=== PATIENT | male | born 1975 | race Caucasian/White ===

== ENCOUNTER 2023-07-29 13:21 | Observation (INO) ==
--- NOTE | 2023-07-29 14:52 | ED Triage Note ---
Date of Service July 29, 2023 History of Present Illness This patient was briefly evaluated while in triage. An abbreviated physical exam was performed. This patient is a 48-year-old Male who presents to the ED for evaluation of abdominal pain. Center and to the right side of the lower abdomen. Started around 8:30 am today. Associated nausea. He describes it as: "Stomach cramping" and "bloating". Physical Exam GENERAL: 48 year old male. In no acute distress. SKIN: No lesions or rashes. HEART: Regular rate and rhythm. LUNGS: Clear to auscultation. ABDOMEN: Bowel sounds normoactive. No guarding or rigidity. No tenderness of palpation. NEURO: Alert and oriented. No deficits. MUSCULOSKELETAL: No deformities to inspection of the extremities. PSYCH: Patient is pleasant and answers all questions appropriately. Initial orders for labs and / or imaging were placed and patient was placed in the waiting area until a bed is available. Please see further documentation for the full ED course.
[2023-07-29 18:12] LABS: Alanine Aminotransferase 36 U/L (7-52); Albumin Globulin Ratio 1.5 (0.9-2); Albumin Level 4.9 gm/dl (3.4-5.0); Alkaline Phosphatase 91 U/L (34-104); BUN Creatinine Ratio 22.7 (10-20); Bilirubin,Total 1.1 mg/dl (0.2-1.0); Blood Urea Nitrogen 20 mg/dl (6-23); Calcium 10.1 mg/dl (8.6-10.3); Carbon Dioxide 26 mmol/L (21-32); Chloride 101 mmol/L (98-107); Est GFR (African American) 119.4 ml/min; Globulin 3.2 gm/dl (2.5-4.0); Glucose 107 mg/dl (70-99(Fasting)); Lipase 17 U/L (11-82); Total Protein 8.1 gm/dl (6.0-8.3)
[2023-07-29] MEDS ORDERED: OPTIRAY 320 100ml IV ONE (18:58)
[2023-07-29 19:22] LABS: Basophils # (auto) 0.06 K/uL (0.00-0.20); Basophils % (auto) 0.4 %; Eosinophils # (auto) 0.34 K/uL (0.00-0.50); Eosinophils % (auto) 2.5 %; Hematocrit (blood only) 46.3 % (42.0-52.0); Hemoglobin 16.1 g/dl (14.0-18.0); Immature Granulocytes # (auto) 0.06 K/uL (0.01-0.20); Immature Granulocytes % (auto) 0.4 %; Lymphocytes # (auto) 1.27 K/uL (1.20-3.40); Lymphocytes % (auto) 9.3 %; Mean Corpuscular Hgb Conc 34.8 g/dL (32.0-36.0); Mean Platelet Volume 10.1 fL (9.4-12.4); Monocytes % (auto) 5.1 %; Neutrophils % (auto) 82.3 %; Platelet Count 219 K/uL (130-400); RDW Coefficient of Variation 12.5 % (11.5-14.5); RDW Standard Deviation 40.9 fL (36.4-46.3); White Blood Count 13.63 K/ul (4.8-10.8)
--- NOTE | 2023-07-29 19:29 | Emergency Department Note ---
Impression & Plan Acute cholecystitis ED Provider Note NAME: BRENDEN RIVERA AGE: 48 SEX: M : 1975 ARRIVES VIA: Walk-In INFORMANT: Patient, ED PROVIDER(S): Abdoul Ocasio MD Name: BRENDEN RIVERA Age: 48 Arrives Via: Walk-In Informant: Patient CC: Abdominal pain HPI: 48M arrives for evaluation of abdominal pain. Patient notes that for the past few weeks he has had persistent episodes of abdominal pain in the mornings. 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 His last approximately 1 to 2 hours and then self resolved. Describes it as a crampy sensation starting in his mid epigastrium. Also radiates into his right lower quadrant. He notes constipation as well as nausea. He notes that occasionally this episode will also occur after waking up in the afternoon prior to going to work. He notes it is not related to food intake. Never happened before. No history of Crohn's or ulcerative colitis. No gallbladder abnormalities in the past. ROS: See above HPI for pertinent positives & negatives. A total of 10 systems reviewed and were otherwise negative. Past Medical History:See Below Past Surgical History:See Below Family History:See Below Social History:See Below Home Medications:See Below Allergies:See Below Vitals:See Below Physical Exam: GENERAL: Patient is well appearing and in no acute distress. EYES: No scleral icterus, unremarkable pupils. ENT: Mucous membranes moist, no nasal congestion. NECK: No masses appreciated, nomeningismus, trachea is midline. RESPIRATORY: No dyspnea. Clear to auscultation and equal bilaterally. No wheeze, no rhonchi. CARDIOVASCULAR: Regular rate and rhythm.No murmurs, rubs, gallops appreciated. GASTROINTESTINAL: Abdomen soft, mildly tender, mostly in the right upper quadrant no peritonitis.Bowel sounds positive.No masses appreciated. BACK: No midline tenderness, no CVA tenderness EXTREMITIES: Normal motion all extremities, no cyanosis, no edema. NEUROLOGIC: Alert and oriented, no acute motor or sensory deficits, no focal weakness, cranial nerves grossly intact. SKIN: No rash, no jaundice, no diaphoresis. ED Course: Prior Medical Record, Triage/Nursing Notes, Medications, Allergies reviewed by Me Vital Signs: reviewed and remarkable for no significant abnormalities Labs:Reviewed and remarkable for no significant abnormalities Interventions: IV antibiotics Imaging:CT abdomen/pelvis as below EKG:EKG reviewed by me showing normal sinus rhythm, rate 70, IL 186, QRS 96, QTc 423, no ST segment elevations consistent with STEMI. Consults:General surgery Disposition:Admission for surgical surgery surgical service admission Differentials:SBO, pancreatitis, appendicitis, cholecystitis amongst other pathologies. Medical Decision Making: This is a 48-year-old male presenting abdominal pain. With episodic in nature, consider GERD, cholecystitis, ulcerative colitis, Crohn's. Also consider SBO. Consider ACS however less likely. blood work shows leukocytosis 13.6 otherwise no significant abnormalities. Ceftriaxone for empiric coverage. Will discuss with on-call surgeon for further recommendations. At this time we will start Flagyl and patient CT scan is positive for acute cholecystitis. Discussed with Dr. Lee, general surgeon who accepts patient to her service. Impression: Acute cholecystitis Critical Care Time: None Past Med/Surg History Social History Smoking Status: Current every day smoker Tobacco Type: E-cigarettes / Vaping Hx Alcohol Use: No Hx Substance Use: No Preferred Language: Slovak Communication Ability: Effective Gravity Prospecting Operator Required: No Beliefs That Will Affect Care: None Current Living Situation: Alone Other Information That Helps Us Care for You: No Feels Safe at Home: Yes Safety Concerns: Feels Safe At This Time Assistive Devices: None Allergies Allergies Allergy/AdvReac Type Severity Reaction Status Date / Time No Known Allergies Allergy Unknown Verified 07/29/23 19:54 Home Meds Home Medications Medication Instructions Recorded Confirmed No Known Home Medications 07/29/23 07/29/23 Results & Data (ED) Vital Signs Vital Signs - 24 hr 07/29/23 14:51 07/29/23 19:57 Temperature 36.2 C L Temperature Source Temporal Artery Scan Pulse Rate 83 Pulse Rate [Apical] 85 Pulse Rhythm Regular Pulse Strength Normal Respiratory Rate 20 18 Respiratory Effort / Characteristics Non-Labored Spontaneous Respiratory Depth Normal Respiratory Pattern Regular Blood Pressure 154/105 H Blood Pressure [Right Arm] 146/95 H Blood Pressure Mean 121 Blood Pressure Mean [Right Arm] 112 Blood Pressure Position Sitting Pulse Oximetry 99 96 Oxygen Delivery Method Room Air Room Air Sepsis Recent Fever Within 48 Hours No Sepsis New/Unexplained Change in Mental Status No Sepsis Action Taken by Nursing No Action Required Laboratory Data 07/29/23 18:50 07/29/23 17:26 Lab Results 07/29/23 07/29/23 07/29/23 Range/Units 17:26 17:26 18:50 WBC Cancelled 13.63 H RBC Cancelled 5.20 Hgb Cancelled 16.1 Hct Cancelled 46.3 MCV Cancelled 89.0 MCH Cancelled 31.0 MCHC Cancelled 34.8 RDW Std Deviation Cancelled 40.9 RDW Coeff of Destiney Cancelled 12.5 Plt Count Cancelled 219 MPV Cancelled 10.1 Immature Gran % (Auto) Cancelled 0.4 Neut % (Auto) Cancelled 82.3 Lymph % (Auto) Cancelled 9.3 Hoke % (Auto) Cancelled 5.1 Eos % (Auto) Cancelled 2.5 Baso % (Auto) Cancelled 0.4 Neut # (Auto) Cancelled 11.20 H Lymph # (Auto) Cancelled 1.27 Hoke # (Auto) Cancelled 0.70 H Eos # (Auto) Cancelled 0.34 Baso # (Auto) Cancelled 0.06 Immature Gran # (Auto) Cancelled 0.06 Absolute Nucleated RBC Cancelled Nucleated RBC % (auto) Cancelled Neutrophils % (Manual) Cancelled Band Neutrophils % Cancelled Lymphocytes % (Manual) Cancelled Prolymphocyte % Cancelled Reactive Lymphs % (Man) Cancelled Monocytes % (Manual) Cancelled Eosinophils % (Manual) Cancelled Basophils % (Manual) Cancelled Metamyelocytes % (Man) Cancelled Myelocytes % (Man) Cancelled Promyelocytes % (Man) Cancelled Blast Cells % (Manual) Cancelled Plasma Cell % (Manual) Cancelled Other Cells % Cancelled Nucleated RBC % Cancelled Neutrophils # (Manual) Cancelled Band Neutrophils # Cancelled Total Absolute Neuts Cancelled Lymphocytes # (Manual) Cancelled Prolymphocyte # Cancelled Reactive Lymphs # Cancelled Total Abs Lymphocytes Cancelled Monocytes # (Manual) Cancelled Eosinophils # (Manual) Cancelled Basophils # (Manual) Cancelled Metamyelocytes # (Man) Cancelled Myelocytes # (Manual) Cancelled Promyelocytes # (Man) Cancelled Blast Cells # (Man) Cancelled Plasma Cell # (Manual) Cancelled Other Cells # Cancelled Nucleated RBCs # (Man) Cancelled Hypersegmented Neuts Cancelled Hyposegmented Neuts Cancelled Hypogranular Neuts Cancelled Large Granular Lymphs Cancelled # Lrg Granular Lymphs Cancelled Hairy Cells Cancelled Smudge Cells Cancelled Toxic Granulation Cancelled Toxic Vacuolation Cancelled Dohle Bodies Cancelled Gilson Rods Cancelled Platelet Estimate Cancelled Hypogranular Platelets Cancelled Giant Platelets Cancelled Platelet Satelliting Cancelled RBC Morphology Cancelled Polychromasia Cancelled Hypochromasia Cancelled Poikilocytosis Cancelled Basophilic Stippling Cancelled Anisocytosis Cancelled Microcytosis Cancelled Macrocytosis Cancelled Spherocytes Cancelled Pappenheimer Bodies Cancelled Sickle Cells Cancelled Target Cells Cancelled Tear Drop Cells Cancelled Ovalocytes Cancelled Stomatocytes Cancelled Carter-[place] Bodies Cancelled Echinocytes Cancelled Acanthocytes (Spur) Cancelled Rouleaux Cancelled RBC Agglutinates Cancelled Schistocytes Cancelled Sezary Cell Cancelled Sodium TNP Potassium TNP Chloride 101 (98-107) mmol/L Carbon Dioxide 26 (21-32) mmol/L Anion Gap TNP BUN 20 (6-23) mg/dl Creatinine 0.88 (0.6-1.4) mg/dl Est Cr Clr Drug Dosing 102.0 ml/min Est GFR ( Amer) 119.4 ml/min Est GFR (Non-Af Amer) 103.0 ml/min BUN/Creatinine Ratio 22.7 H (10-20) Glucose 107 H (70-99(Fasting)) mg/dl Calcium 10.1 (8.6-10.3) mg/dl Total Bilirubin 1.1 H (0.2-1.0) mg/dl AST TNP ALT 36 (7-52) U/L Alkaline Phosphatase 91 (34-104) U/L Troponin I High Sens (0-20) pg/ml Total Protein 8.1 (6.0-8.3) gm/dl Albumin 4.9 (3.4-5.0) gm/dl Globulin 3.2 (2.5-4.0) gm/dl Albumin/Globulin Ratio 1.5 (0.9-2) Lipase 17 (11-82) U/L Blood Parasites ID Cancelled 07/29/23 Range/Units 18:50 WBC RBC Hgb Hct MCV MCH MCHC RDW Std Deviation RDW Coeff of Destiney Plt Count MPV Immature Gran % (Auto) Neut % (Auto) Lymph % (Auto) Hoke % (Auto) Eos % (Auto) Baso % (Auto) Neut # (Auto) Lymph # (Auto) Hoke # (Auto) Eos # (Auto) Baso # (Auto) Immature Gran # (Auto) Absolute Nucleated RBC Nucleated RBC % (auto) Neutrophils % (Manual) Band Neutrophils % Lymphocytes % (Manual) Prolymphocyte % Reactive Lymphs % (Man) Monocytes % (Manual) Eosinophils % (Manual) Basophils % (Manual) Metamyelocytes % (Man) Myelocytes % (Man) Promyelocytes % (Man) Blast Cells % (Manual) Plasma Cell % (Manual) Other Cells % Nucleated RBC % Neutrophils # (Manual) Band Neutrophils # Total Absolute Neuts Lymphocytes # (Manual) Prolymphocyte # Reactive Lymphs # Total Abs Lymphocytes Monocytes # (Manual) Eosinophils # (Manual) Basophils # (Manual) Metamyelocytes # (Man) Myelocytes # (Manual) Promyelocytes # (Man) Blast Cells # (Man) Plasma Cell # (Manual) Other Cells # Nucleated RBCs # (Man) Hypersegmented Neuts Hyposegmented Neuts Hypogranular Neuts Large Granular Lymphs # Lrg Granular Lymphs Hairy Cells Smudge Cells Toxic Granulation Toxic Vacuolation Dohle Bodies Gilson Rods Platelet Estimate Hypogranular Platelets Giant Platelets Platelet Satelliting RBC Morphology Polychromasia Hypochromasia Poikilocytosis Basophilic Stippling Anisocytosis Microcytosis Macrocytosis Spherocytes Pappenheimer Bodies Sickle Cells Target Cells Tear Drop Cells Ovalocytes Stomatocytes Carter-[place] Bodies Echinocytes Acanthocytes (Spur) Rouleaux RBC Agglutinates Schistocytes Sezary Cell Sodium 137 Potassium 3.7 Chloride (98-107) mmol/L Carbon Dioxide (21-32) mmol/L Anion Gap BUN (6-23) mg/dl Creatinine (0.6-1.4) mg/dl Est Cr Clr Drug Dosing ml/min Est GFR ( Amer) ml/min Est GFR (Non-Af Amer) ml/min BUN/Creatinine Ratio (10-20) Glucose (70-99(Fasting)) mg/dl Calcium (8.6-10.3) mg/dl Total Bilirubin (0.2-1.0) mg/dl AST 23 ALT (7-52) U/L Alkaline Phosphatase (34-104) U/L Troponin I High Sens 6.4 (0-20) pg/ml Total Protein (6.0-8.3) gm/dl Albumin (3.4-5.0) gm/dl Globulin (2.5-4.0) gm/dl Albumin/Globulin Ratio (0.9-2) Lipase (11-82) U/L Blood Parasites ID Administered Medications Metronidazole (Flagyl) 500 mg in 100 mls @ 100 mls/hr IV Q8H DAI; Protocol Stop: 07/31/23 20:14 Last Infusion: 07/29/23 22:01 Dose: 0 mls/hr Documented By: Admin: 07/29/23 20:50 Dose: 100 mls/hr Documented By: SHAILA Lactated Ringer's (Lr) 1,000 mls @ 100 mls/hr IV .Q10H DAI Stop: 08/28/23 21:32 Last Admin: 07/29/23 22:05 Dose: 100 mls/hr Documented By: ADDISON Discontinued Medications Ceftriaxone Sodium (Rocephin) 2,000 mg in 70 mls @ 140 mls/hr IV NOW STA Stop: 07/29/23 20:36 Last Infusion: 07/29/23 21:20 Dose: 0 mls/hr Documented By: Admin: 07/29/23 20:50 Dose: 140 mls/hr Documented By: SHAILA Ioversol (Optiray 320 100ml) 92 ml IV ONCE ONE Stop: 07/29/23 18:59 Last Admin: 07/29/23 18:58 Dose: 92 ml Documented By: SEAN Imaging Data Radiologist's Impression: Abdomen/Pelvis CT 07/29/23 14:52 Exam(s): CT ABDOMEN + PELVIS With Contrast IV Amt: 92 ml optiray 350 EXAM: CT Abdomen and Pelvis With Intravenous Contrast CLINICAL HISTORY: Reason for exam: Mid and r sided abd pain. TECHNIQUE: Axial computed tomography images of the abdomen and pelvis with intravenous contrast. CTDI is 21.95 mGy and DLP is 1093.39 mGy-cm. Automated exposure control was utilized for the study. A dose lowering technique was utilized adhering to the principles of ALARA. CONTRAST: Patient received 92 ml optiray 350 of IV contrast COMPARISON: No relevant prior studies available. FINDINGS: Lung bases: Unremarkable. No mass. No consolidation. ABDOMEN: Liver: Unremarkable. No mass. Gallbladder and bile ducts: Wall thickening of the gallbladder measuring up to 5 mm with obstructing stone in the gallbladder neck, consistent with acute cholecystitis. Surgical evaluation recommended. No ductal dilation. Pancreas: Unremarkable. No mass. No ductal dilation. Spleen: Unremarkable. No splenomegaly. Adrenals: Unremarkable. No mass. Kidneys and ureters: Unremarkable. No solid mass. No hydronephrosis. Stomach and bowel: Diverticulosis, without acute diverticulitis. No small bowel obstruction. No free intraperitoneal air. PELVIS: Appendix: Normal appendix. Bladder: Unremarkable. No mass. Reproductive: Unremarkable as visualized. ABDOMEN and PELVIS: Intraperitoneal space: Unremarkable. No free air. No significant fluid collection. Bones/joints: Degenerative changes of the spine. No acute fracture. No dislocation. Soft tissues: Unremarkable. Vasculature: Atherosclerotic changes of the aorta. No abdominal aortic aneurysm. Lymph nodes: Unremarkable. No enlarged lymph nodes. IMPRESSION: Positive for acute cholecystitis. Electronically signed by: Bruce Kinsey MD 07/29/23 20:00 PM Discharge Plan Visit Data Chief Complaint: Abdominal Pain Stated Complaint: ABD PAIN ED Provider: Abdoul Ocasio Discharge Problem: Acute cholecystitis Patient Disposition: Admitted As Inpatient Discharge Instructions Interventions: ED Discharge Assessment Last Done: 07/29/23 21:33
[2023-07-29 19:40] LABS: Potassium 3.7 mmol/L (3.5-5.1)
--- NOTE | 2023-07-29 20:01 | CT Scan Report ---
Exam(s): CT ABDOMEN + PELVIS With Contrast IV Amt: 92 ml optiray 350 EXAM: CT Abdomen and Pelvis With Intravenous Contrast CLINICAL HISTORY: Reason for exam: Mid and r sided abd pain. TECHNIQUE: Axial computed tomography images of the abdomen and pelvis with intravenous contrast. CTDI is 21.95 mGy and DLP is 1093.39 mGy-cm. Automated exposure control was utilized for the study. A dose lowering technique was utilized adhering to the principles of ALARA. CONTRAST: Patient received 92 ml optiray 350 of IV contrast COMPARISON: No relevant prior studies available. FINDINGS: Lung bases: Unremarkable. No mass. No consolidation. ABDOMEN: Liver: Unremarkable. No mass. Gallbladder and bile ducts: Wall thickening of the gallbladder measuring up to 5 mm with obstructing stone in the gallbladder neck, consistent with acute cholecystitis. Surgical evaluation recommended. No ductal dilation. Pancreas: Unremarkable. No mass. No ductal dilation. Spleen: Unremarkable. No splenomegaly. Adrenals: Unremarkable. No mass. Kidneys and ureters: Unremarkable. No solid mass. No hydronephrosis. Stomach and bowel: Diverticulosis, without acute diverticulitis. No small bowel obstruction. No free intraperitoneal air. PELVIS: Appendix: Normal appendix. Bladder: Unremarkable. No mass. Reproductive: Unremarkable as visualized. ABDOMEN and PELVIS: Intraperitoneal space: Unremarkable. No free air. No significant fluid collection. Bones/joints: Degenerative changes of the spine. No acute fracture. No dislocation. Soft tissues: Unremarkable. Vasculature: Atherosclerotic changes of the aorta. No abdominal aortic aneurysm. Lymph nodes: Unremarkable. No enlarged lymph nodes. IMPRESSION: Positive for acute cholecystitis. Electronically signed by: Bruce Kinsey MD 07/29/23 20:00 PM
[2023-07-29] MEDS ORDERED: cefTRIAXone SODIUM 2,000 MG/70 ML BAG IV STA (20:07)
[2023-07-29 20:24] LABS: Troponin I High Sensitivity 6.4 pg/ml (0-20)
[2023-07-29] MEDS: metroNIDAZOLE 500 MG/100 ML BAG IV SCH (20:50)
[2023-07-29] MEDS ORDERED: MoRPHine SULFATE 4 MG/ML 1 ML CARP\\VIAL IV PRN (21:33)
[2023-07-29] MEDS ORDERED: MoRPHine SULFATE 2 MG/ML CARP IV PRN (21:33)
[2023-07-29] MEDS ORDERED: ONDANSETRON INJ 2 MG/ML 2 ML VIAL IV PRN (21:33)
[2023-07-29] MEDS: LACTATED RINGER'S 1,000 ML IV SCH (22:05)
[2023-07-30] MEDS: metroNIDAZOLE 500 MG/100 ML BAG IV SCH ×3 (05:04→23:58)
[2023-07-30] MEDS: LACTATED RINGER'S 1,000 ML IV SCH (06:40)
--- NOTE | 2023-07-30 09:10 | Anesthesiology Consultation ---
Date of Service July 30, 2023 Assessment & Plan Chart Review Chart Review: entry writer initiated History Surgery Operation Date: 07/30/23 10:05 Proposed Procedures p Laparoscopic Cholecystectomy - Mingo Skinner MD Height/Weight Height: 5 ft 5 in Weight: 79 kg Allergies Allergy/AdvReac Type Severity Reaction Status Date / Time No Known Allergies Allergy Unknown Verified 07/29/23 19:54 Medications Home Medications Medication Instructions Recorded Confirmed Last Taken No Known Home Medications 07/29/23 07/29/23 Unknown Active Medications Generic Name Dose Route Start Last Admin Trade Name Yaniv PRN Reason Stop Dose Admin Metronidazole 500 mg in 100 mls @ 100 mls/hr 07/29/23 20:15 07/30/23 06:09 Flagyl IV 07/31/23 20:14 Infused Q8H DAI Infusion Protocol Lactated Ringer's 1,000 mls @ 100 mls/hr 07/29/23 21:33 07/30/23 06:40 Lr IV 08/28/23 21:32 100 mls/hr .Q10H DAI Administration Social History Smoking Status: Current every day smoker Hx Alcohol Use: No Hx Substance Use: No Physical Exam Vital Signs Last Vital Signs Temp 97.9 F 07/30/23 07:48 Pulse 72 07/30/23 07:48 Resp 16 07/30/23 07:48 BP 108/67 07/30/23 07:48 Pulse Ox 96 07/30/23 07:48 O2 Del Method Room Air 07/30/23 08:34 Testing Laboratory Results 07/29/23 18:50 07/29/23 18:50 Electrocardiogram Date: 07/29/23 Findings: + NSR @ (70 bpm)
--- NOTE | 2023-07-30 09:37 | History & Physical Report ---
Date of Service July 30, 2023 Assessment & Plan (1) Acute cholecystitis: Plan 48-year-old gentleman with what appears to be acute on chronic cholecystitis. I had a long discussion with him concerning laparoscopic cholecystectomy. We discussed the risks, benefits, postoperative recovery and restrictions. All his questions were answered, he is agreeable to proceed. We will take him to the operating room at the earliest convenience. Admission and Anticipated Discharge Date Admission Date: July 29, 2023 History of Present Illness Primary Care Provider: NO PCP 48-year-old gentleman with a 3-week history of recurrence right upper quadrant abdominal pain radiating to the epigastric region in the back. It occurs after food. Occurs mainly towards the morning. 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 He denies fevers or chills. He denies nausea or vomiting. The pain worsened yesterday and did not go away. Normally the pain resolves in about [address] scan demonstrates acute cholecystitis with a large stone in the neck of the gallbladder. Currently he is not having a significant amount of pain. Allergies Allergy/AdvReac Type Severity Reaction Status Date / Time No Known Allergies Allergy Unknown Verified 07/29/23 19:54 Home Medications Medication Instructions Recorded Confirmed Type No Known Home Medications 07/29/23 07/29/23 History Past Med/Surg History Social History Smoking Status: Current every day smoker Tobacco Type: E-cigarettes / Vaping Hx Alcohol Use: No Hx Substance Use: No Preferred Language: Slovenian Communication Ability: Effective Sales Host Required: No Beliefs That Will Affect Care: None Current Living Situation: Alone Other Information That Helps Us Care for You: No Feels Safe at Home: Yes Safety Concerns: Feels Safe At This Time Assistive Devices: None Review of Systems Review of Systems: All systems reviewed & are unremarkable except as noted in HPI & below Physical Exam Constitutional: WD/WN, vitals as above Eyes: PERRL, conjunctivae normal, anicteric sclerae Neck: trachea midline, no thyromegaly Respiratory: normal respiratory effort, lungs clear to auscultation Cardiovascular: RRR, no murmur, no edema Gastrointestinal (Abdomen): Inspection/Auscultation: abdomen normal to inspection; abdomen not distended Percussion/Palpation: + abdomen tender (Mild RUQ) and abdomen soft; no guarding and abdomen not rigid Skin: no rashes, warm and dry Psychiatric: A+Ox3, euthymic affect Results & Data Results & Data Vital Signs (Past 12 Hours) Vital Signs Temp Pulse Resp BP Pulse Ox O2 Del Method 07/30/23 08:34 Room Air 07/30/23 07:48 36.6 C 72 16 108/67 96 Room Air 07/29/23 22:38 37.4 C 63 16 136/87 99 Room Air 07/29/23 22:00 71 18 136/91 99 Room Air Laboratory Results 07/29/23 07/29/23 07/29/23 Range/Units 18:50 18:50 17:26 WBC 13.63 H RBC 5.20 Hgb 16.1 Hct 46.3 MCV 89.0 MCH 31.0 MCHC 34.8 RDW Std Deviation 40.9 RDW Coeff of Destiney 12.5 Plt Count 219 MPV 10.1 Immature Gran % (Auto) 0.4 Neut % (Auto) 82.3 Lymph % (Auto) 9.3 [place] % (Auto) 5.1 Eos % (Auto) 2.5 Baso % (Auto) 0.4 Neut # (Auto) 11.20 H Lymph # (Auto) 1.27 [place] # (Auto) 0.70 H Eos # (Auto) 0.34 Baso # (Auto) 0.06 Immature Gran # (Auto) 0.06 Absolute Nucleated RBC Nucleated RBC % (auto) Neutrophils % (Manual) Band Neutrophils % Lymphocytes % (Manual) Prolymphocyte % Reactive Lymphs % (Man) Monocytes % (Manual) Eosinophils % (Manual) Basophils % (Manual) Metamyelocytes % (Man) Myelocytes % (Man) Promyelocytes % (Man) Blast Cells % (Manual) Plasma Cell % (Manual) Other Cells % Nucleated RBC % Neutrophils # (Manual) Band Neutrophils # Total Absolute Neuts Lymphocytes # (Manual) Prolymphocyte # Reactive Lymphs # Total Abs Lymphocytes Monocytes # (Manual) Eosinophils # (Manual) Basophils # (Manual) Metamyelocytes # (Man) Myelocytes # (Manual) Promyelocytes # (Man) Blast Cells # (Man) Plasma Cell # (Manual) Other Cells # Nucleated RBCs # (Man) Hypersegmented Neuts Hyposegmented Neuts Hypogranular Neuts Large Granular Lymphs # Lrg Granular Lymphs Hairy Cells Smudge Cells Toxic Granulation Toxic Vacuolation Dohle Bodies Gilson Rods Platelet Estimate Hypogranular Platelets Giant Platelets Platelet Satelliting RBC Morphology Polychromasia Hypochromasia Poikilocytosis Basophilic Stippling Anisocytosis Microcytosis Macrocytosis Spherocytes Pappenheimer Bodies Sickle Cells Target Cells Tear Drop Cells Ovalocytes Stomatocytes Carter-Tifton Bodies Echinocytes Acanthocytes (Spur) Rouleaux RBC Agglutinates Schistocytes Sezary Cell Sodium 137 TNP Potassium 3.7 TNP Chloride 101 (98-107) mmol/L Carbon Dioxide 26 (21-32) mmol/L Anion Gap TNP BUN 20 (6-23) mg/dl Creatinine 0.88 (0.6-1.4) mg/dl Est Cr Clr Drug Dosing 102.0 ml/min Est GFR ( Amer) 119.4 ml/min Est GFR (Non-Af Amer) 103.0 ml/min BUN/Creatinine Ratio 22.7 H (10-20) Glucose 107 H (70-99(Fasting)) mg/dl Calcium 10.1 (8.6-10.3) mg/dl Total Bilirubin 1.1 H (0.2-1.0) mg/dl AST 23 TNP ALT 36 (7-52) U/L Alkaline Phosphatase 91 (34-104) U/L Troponin I High Sens 6.4 (0-20) pg/ml Total Protein 8.1 (6.0-8.3) gm/dl Albumin 4.9 (3.4-5.0) gm/dl Globulin 3.2 (2.5-4.0) gm/dl Albumin/Globulin Ratio 1.5 (0.9-2) Lipase 17 (11-82) U/L Blood Parasites ID 07/29/23 Range/Units 17:26 WBC Cancelled RBC Cancelled Hgb Cancelled Hct Cancelled MCV Cancelled MCH Cancelled MCHC Cancelled RDW Std Deviation Cancelled RDW Coeff of Destiney Cancelled Plt Count Cancelled MPV Cancelled Immature Gran % (Auto) Cancelled Neut % (Auto) Cancelled Lymph % (Auto) Cancelled [place] % (Auto) Cancelled Eos % (Auto) Cancelled Baso % (Auto) Cancelled Neut # (Auto) Cancelled Lymph # (Auto) Cancelled [place] # (Auto) Cancelled Eos # (Auto) Cancelled Baso # (Auto) Cancelled Immature Gran # (Auto) Cancelled Absolute Nucleated RBC Cancelled Nucleated RBC % (auto) Cancelled Neutrophils % (Manual) Cancelled Band Neutrophils % Cancelled Lymphocytes % (Manual) Cancelled Prolymphocyte % Cancelled Reactive Lymphs % (Man) Cancelled Monocytes % (Manual) Cancelled Eosinophils % (Manual) Cancelled Basophils % (Manual) Cancelled Metamyelocytes % (Man) Cancelled Myelocytes % (Man) Cancelled Promyelocytes % (Man) Cancelled Blast Cells % (Manual) Cancelled Plasma Cell % (Manual) Cancelled Other Cells % Cancelled Nucleated RBC % Cancelled Neutrophils # (Manual) Cancelled Band Neutrophils # Cancelled Total Absolute Neuts Cancelled Lymphocytes # (Manual) Cancelled Prolymphocyte # Cancelled Reactive Lymphs # Cancelled Total Abs Lymphocytes Cancelled Monocytes # (Manual) Cancelled Eosinophils # (Manual) Cancelled Basophils # (Manual) Cancelled Metamyelocytes # (Man) Cancelled Myelocytes # (Manual) Cancelled Promyelocytes # (Man) Cancelled Blast Cells # (Man) Cancelled Plasma Cell # (Manual) Cancelled Other Cells # Cancelled Nucleated RBCs # (Man) Cancelled Hypersegmented Neuts Cancelled Hyposegmented Neuts Cancelled Hypogranular Neuts Cancelled Large Granular Lymphs Cancelled # Lrg Granular Lymphs Cancelled Hairy Cells Cancelled Smudge Cells Cancelled Toxic Granulation Cancelled Toxic Vacuolation Cancelled Dohle Bodies Cancelled Gilson Rods Cancelled Platelet Estimate Cancelled Hypogranular Platelets Cancelled Giant Platelets Cancelled Platelet Satelliting Cancelled RBC Morphology Cancelled Polychromasia Cancelled Hypochromasia Cancelled Poikilocytosis Cancelled Basophilic Stippling Cancelled Anisocytosis Cancelled Microcytosis Cancelled Macrocytosis Cancelled Spherocytes Cancelled Pappenheimer Bodies Cancelled Sickle Cells Cancelled Target Cells Cancelled Tear Drop Cells Cancelled Ovalocytes Cancelled Stomatocytes Cancelled Carter-Tifton Bodies Cancelled Echinocytes Cancelled Acanthocytes (Spur) Cancelled Rouleaux Cancelled RBC Agglutinates Cancelled Schistocytes Cancelled Sezary Cell Cancelled Sodium Potassium Chloride (98-107) mmol/L Carbon Dioxide (21-32) mmol/L Anion Gap BUN (6-23) mg/dl Creatinine (0.6-1.4) mg/dl Est Cr Clr Drug Dosing ml/min Est GFR ( Amer) ml/min Est GFR (Non-Af Amer) ml/min BUN/Creatinine Ratio (10-20) Glucose (70-99(Fasting)) mg/dl Calcium (8.6-10.3) mg/dl Total Bilirubin (0.2-1.0) mg/dl AST ALT (7-52) U/L Alkaline Phosphatase (34-104) U/L Troponin I High Sens (0-20) pg/ml Total Protein (6.0-8.3) gm/dl Albumin (3.4-5.0) gm/dl Globulin (2.5-4.0) gm/dl Albumin/Globulin Ratio (0.9-2) Lipase (11-82) U/L Blood Parasites ID Cancelled Code Status & VTE Plan VTE Prophylaxis Plan VTE Prophylaxis will be ordered: Yes
[2023-07-30] MEDS ORDERED: ePHEDrine sulfate 50 MG/ML AMP IV PRN (10:53)
[2023-07-30] MEDS ORDERED: ATROPINE SULFATE 0.1 MG/ML 10ML SYR IV PRN (10:53)
[2023-07-30] MEDS ORDERED: fentaNYL citrate PF 100 MCG/2 ML VIAL IV PRN (10:53)
[2023-07-30] MEDS ORDERED: ONDANSETRON INJ 2 MG/ML 2 ML VIAL IV PRN (10:53)
[2023-07-30 11:02] LABS: Appearance Urine Clear (Clear); Bilirubin Urine Negative (Negative); Blood Urine Negative (Negative); Color Urine Dark Yellow; Glucose Urine UA Negative (Negative); Ketones Urine Negative (Negative); Leukocyte Esterase Urine Negative (Negative); Nitrite Urine Negative (Negative); Protein Urine Negative (Negative); Specific Gravity Urine 1.025 (1.000-1.030); Urobilinogen Urine Negative (Negative); pH Urine 6.5 (4.5-7.5)
[2023-07-30] MEDS ORDERED: MIDAZOLAM HCL 1 MG/ML 2ML VIAL ONE (11:04)
[2023-07-30] MEDS ORDERED: fentaNYL citrate PF 100 MCG/2 ML VIAL ONE (11:04)
[2023-07-30] MEDS ORDERED: ACETAMINOPHEN 1000 MG/100 ML IV IV ONE (11:42)
[2023-07-30] MEDS ORDERED: BUPIVACAINE/EPINEPHRINE 0.25% 1:200,000 30 ML VIAL ONE (11:47)
[2023-07-30] MEDS ORDERED: KETAMINE 50 MG/5 ML SYRINGE ONE (12:21)
[2023-07-30] MEDS ORDERED: HYDROmorphone INJ 2 MG/ML SYR/VIAL ONE (12:22)
[2023-07-30] MEDS ORDERED: PROPOFOL IV EMULSION 10 MG/ML 20 ML VIAL IV ONE (12:39)
[2023-07-30] MEDS ORDERED: LIDOCAINE 2% 2 ML VIAL/AMP(20MG/ML) INFIL ONE (12:39)
[2023-07-30] MEDS ORDERED: ROCURONIUM BROMIDE 10 MG/ML 5 ML VIAL IV ONE (12:39)
[2023-07-30] MEDS ORDERED: DEXAMETHASONE SOD INJ 4 MG/ML VIAL ONE (12:40)
[2023-07-30] MEDS ORDERED: ONDANSETRON INJ 2 MG/ML 2 ML VIAL ONE (12:40)
[2023-07-30] MEDS ORDERED: GLYCOPYRROLATE 0.2 MG/ML VIAL ONE (12:52)
[2023-07-30] MEDS ORDERED: NEOSTIGMINE METHYLSULFATE 1 MG/ML 10ML VIAL ONE (12:52)
--- NOTE | 2023-07-30 12:58 | Operative Report ---
Post Operative Report Pre & Post Diagnosis Operation Date: 07/30/23 10:05 Pre-Op Diagnosis: Acute Cholecystitis Post-Op Diagnosis: Acute Cholecystitis I identified the patient and participated in the time-out.: Yes Procedure Operation Date: 07/30/23 10:05 Actual Procedures p Laparoscopic Cholecystectomy(Not Applicable) - Mingo Skinner MD Surgeon Mingo Skinner MD Substation Engineer DIEGO Gleason assisted with tissue retraction, camera op, closure Estimated Blood Loss 5 Findings Consistent with Post-Op Diagnosis Acute cholecystitis Specimens Gallbladder Drains None Anesthesia Type General Complications No immediate complications Description of Procedure The patient was taken to the operating room, and placed supine on the operating table. A timeout was performed, perioperative antibiotics were administered, SCD boots were placed. After adequate anesthesia and analgesia was obtained, the abdomen was prepped and draped in the normal sterile fashion. Local anesthetic was injected into and around the proposed incision sites. An incision was made with a 15 blade scalpel in the supraumbilical region and carried down to the level of the fascia. The fascia was grasped with a trach hook, and a varies needle was used to enter the abdominal cavity. The abdomen was insufflated to a pressure of 15 mmHg, and a 11 mm trocar was placed in this location. A 10 mm, 30 degree laparoscope was placed into the abdominal cavity, and the abdomen was surveyed. There was significant inflammation, acute, of the omentum to the gallbladder. The omentum was attached to the gallbladder. Two 5 mm trochars were placed along the right costal margin, and one 5 mm trocar was placed in the subxiphoid region under direct visualization. The gallbladder was grasped and retracted cephalad and laterally, and we slowly worked her way down the gallbladder, taking down the adhesions of the omentum and surrounding tissue to the gallbladder. Ultimately, we were able to dissect below the level of the stone in the neck of the gallbladder, exposing the triangle of Calot. Dissection began in the triangle with a combination of blunt dissection with the [place] dissector, and judicious use of the hook cautery. The cystic duct and cystic artery were dissected free circumferentially, and a critical view of safety was obtained. The cystic duct and cystic artery were clipped and transected, and the gallbladder was removed from the gallbladder fossa with the hook cautery. The camera was switched to a 5 mm, the gallbladder was placed in an Endo Catch bag, and removed via the supraumbilical port site. The camera was switched back to the 10 mm camera, and the abdomen was surveyed again. Hemostasis was checked and attended, and was excellent. The abdomen was copiously irrigated and suctioned free. Again hemostasis was checked and was excellent. All trochars were removed under direct visualization. The abdomen was desufflated. The fascia in the 11 mm port site was closed with a 0 Vicryl suture. The skin was closed with a running 4-0 Monocryl subcuticular stitch. Dermabond was applied. The patient tolerated the procedure without complication, and was transferred in stable condition to the PACU. All instrument, needle, and sponge counts were correct at the end of the case. My school health assistant was necessary throughout the procedure for tissue retraction, possible camera operation, and closure of the wounds. I understand that section 1842(b)(7)(D) of the Social Security act generally prohibits Medicare physician fee schedule payment for the services of assistants at surgery in teaching hospitals when qualified residents are available to furnish such services. I certify that the services for which payment is claimed were medically necessary and that no qualified resident was available to perform the services. I further understand that these services are subject to postpayment review by the Medicare carrier. I attest to the content of the Intraoperative Record and any orders documented therein. Any exceptions are noted below.
[2023-07-30] MEDS ORDERED: KETOROLAC 30 MG/ML VIAL ONE (13:01)
--- NOTE | 2023-07-30 13:44 | Anesthesiology Progress Note ---
Date of Service July 30, 2023 Anesthesia Post Procedure Vital Signs Vital Signs: Temp Pulse Pulse Pulse Resp BP BP 07/30/23 13:35 69 15 141/80 H 07/30/23 13:25 75 17 121/84 07/30/23 13:16 96.8 F L 75 17 149/94 H 07/30/23 10:50 97.9 F 76 20 116/76 07/30/23 08:34 07/30/23 07:48 97.9 F 72 16 108/67 07/29/23 22:38 99.3 F 63 16 136/87 07/29/23 22:00 71 18 136/91 07/29/23 20:51 72 07/29/23 19:57 85 18 146/95 H 07/29/23 14:51 97.2 F L 83 20 154/105 H Pulse Ox O2 Del Method O2 Flow Rate 07/30/23 13:35 95 Nasal Cannula 2 07/30/23 13:25 97 Oxymask 5 07/30/23 13:16 97 Oxymask 5 07/30/23 10:50 Room Air 07/30/23 08:34 Room Air 07/30/23 07:48 96 Room Air 07/29/23 22:38 99 Room Air 07/29/23 22:00 99 Room Air 07/29/23 20:51 07/29/23 19:57 96 Room Air 07/29/23 14:51 99 Room Air Pain Intensity Abdomen: Pain Intensity: 2 Transfer of Care Handoff Completed per policy Notes Mental Status: alert / awake / arousable and participated in evaluation Patient Amnestic to Procedure: Yes Nausea / Vomiting: adequately controlled Pain: adequately controlled Airway Patency, RR, SpO2: stable & adequate BP & HR: stable & adequate Hydration State: stable & adequate Anesthetic Complications: no major complications apparent and Pt Satisfied with anesthetic care
[2023-07-30] MEDS ORDERED: diphenhydrAMINE Capsule 25 MG CAP PO PRN (14:23)
[2023-07-30] MEDS ORDERED: oxyCODONE/ACETAMINOPHEN 5mg/325mg TAB PO PRN (14:23)
[2023-07-30] MEDS ORDERED: KETOROLAC 30 MG/ML VIAL IV PRN (14:23)
--- NOTE | 2023-07-30 14:36 | Anesthesiology Progress Note ---
Date of Service July 30, 2023 Anesthesia Post Procedure Vital Signs Vital Signs: Temp Pulse Pulse Pulse Resp BP BP 07/30/23 14:23 97.9 F 68 18 150/80 H 07/30/23 14:05 74 15 128/81 07/30/23 13:55 74 16 142/82 H 07/30/23 13:45 97.2 F L 67 16 140/80 07/30/23 13:35 69 15 141/80 H 07/30/23 13:25 75 17 121/84 07/30/23 13:16 96.8 F L 75 17 149/94 H 07/30/23 10:50 97.9 F 76 20 116/76 07/30/23 08:34 07/30/23 07:48 97.9 F 72 16 108/67 07/29/23 22:38 99.3 F 63 16 136/87 07/29/23 22:00 71 18 136/91 07/29/23 20:51 72 07/29/23 19:57 85 18 146/95 H 07/29/23 14:51 97.2 F L 83 20 154/105 H Pulse Ox O2 Del Method O2 Flow Rate 07/30/23 14:23 94 Room Air 07/30/23 14:05 98 Nasal Cannula 2 07/30/23 13:55 97 Nasal Cannula 2 07/30/23 13:45 97 Nasal Cannula 2 07/30/23 13:35 95 Nasal Cannula 2 07/30/23 13:25 97 Oxymask 5 07/30/23 13:16 97 Oxymask 5 07/30/23 10:50 Room Air 07/30/23 08:34 Room Air 07/30/23 07:48 96 Room Air 07/29/23 22:38 99 Room Air 07/29/23 22:00 99 Room Air 07/29/23 20:51 07/29/23 19:57 96 Room Air 07/29/23 14:51 99 Room Air Pain Intensity Abdomen: Pain Intensity: 2 Transfer of Care Handoff Completed per policy Notes Mental Status: alert / awake / arousable and participated in evaluation Patient Amnestic to Procedure: Yes Nausea / Vomiting: adequately controlled Pain: adequately controlled Airway Patency, RR, SpO2: stable & adequate BP & HR: stable & adequate Hydration State: stable & adequate Anesthetic Complications: no major complications apparent and Pt Satisfied with anesthetic care
--- NOTE | 2023-07-30 15:42 | Electrocardiogram Report ---
Test Reason : Blood Pressure : / mmHG Vent. Rate : 070 BPM Atrial Rate : 070 BPM P-R Int : 186 ms QRS Dur : 096 ms QT Int : 392 ms P-R-T Axes : 042 028 024 degrees QTc Int : 423 ms Normal sinus rhythm Normal ECG No previous ECGs available Confirmed by Kannan Buitrago ([id number]) on 07/30/2023 3:42:09 PM Referred By: REFERRED SELF Confirmed By:Kannan Buitrago
[2023-07-31] MEDS: metroNIDAZOLE 500 MG/100 ML BAG IV SCH (06:21)
--- NOTE | 2023-07-31 09:34 | Discharge Summary ---
Date of Service July 31, 2023 Admission HPI Per Admitting Provider 48-year-old gentleman with a 3-week history of recurrence right upper quadrant abdominal pain radiating to the epigastric region in the back. It occurs after food. Occurs mainly towards the morning. 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 He denies fevers or chills. He denies nausea or vomiting. The pain worsened yesterday and did not go away. Normally the pain resolves in about [address] scan demonstrates acute cholecystitis with a large stone in the neck of the gallbladder. Currently he is not having a significant amount of pain. Principal Diagnosis Acute calculous cholecystitis Discharge Exam Constitutional WD/WN, vitals as above no acute distress and not ill appearing Respiratory normal respiratory effort; no respiratory distress Gastrointestinal (Abdomen) Inspection/Auscultation: abdomen normal to inspection; abdomen not distended Percussion/Palpation: + abdomen tender (at incision sites) and abdomen soft; no guarding, abdomen not rigid and abdomen not firm Skin no rashes, warm and dry no jaundice Psychiatric A+Ox3, euthymic affect Discharge Data Allergies Allergy/AdvReac Type Severity Reaction Status Date / Time No Known Allergies Allergy Unknown Verified 07/30/23 10:47 Consultations 07/29/23 20:15 ED Decision to Admit Stat Procedures Performed Operation Date: 07/30/23 10:05 Actual Procedures p Laparoscopic Cholecystectomy(Not Applicable) - Mingo Skinner MD Ordered Studies 07/29/23 14:52 CT abd pelvis IV con only Stat Hospital Course (1) Acute cholecystitis: Plan Patient taken to operating room for laparoscopic cholecystectomy by Dr. Skinner on 07/30/2023. Patient found to have acute cholecystitis. Tolerated procedure without difficulty. Patient transferred back to medical/surgial floor for postop care. Diet advanced as tolerated, pain management with oral percocet as needed, and IV antiemetics as needed. POD # 1 avss, pain controlled, tolerating diet, no n,v. Patient discharged home on POD # 1 ins table condition. Total Time Total Time Spent Total Time Spent (In Minutes): 30 Total Time Includes: Examination of the Patient, Discharge Planning and Medication Reconciliation Discharge Plan Discharge Items Patient Disposition: Home - Self-Care Reason For Visit: ACUTE CHOLECYSTITIS Discharge Diagnosis: Acute cholecystitis Activity: Per Instructions section Non-emergency contact: Surgeon Call non-emergency contact if: you have any medication questions, your pain is not controlled, your pain is concerning for you, you have a fever, your temperature is above 101, your wound has increased redness, your wound has increased drainage and your wound pain has increased Follow-up/Referrals: PCP,NO [Primary Care Provider] - Diet: Regular Addtl Attending Provider Instructions: Post-Surgical ~Discharge Instructions Activity Recommendations: - lifting limitation: (20 pounds for 2 weeks), - exercise/sex/sports limit: (nonstrenuous for 2 weeks), - driving or machine use limit: (none for 1 week or until pain free and no longer taking narcotic pain medication), - Shower/bathe limit: (may shower beginning tonight, no subme rging underwater for 2 weeks) Diet: - Resume previous diet SPECIAL CARE INSTRUCTIONS: - May shower.. Let water run over area and pat dry. - Leave surgical glue on incision , this will fall off on its own - Call the surgeon's office with any questions or concerns - - (ex. temperature higher than 101 degrees F, excessive bleeding or pain). MEDICATIONS: - Resume previous medications unless instructed otherwise by your surgeon. - May alternate extra strength Tylenol and Ibuprofen as needed for mild to moderate pain -650 mg Tylenol every 6 hours as needed - Ibuprofen 600 mg every 6 hours as needed (take with food) - Percocet 1 every 6 hours, as needed for severe pain - Recommend daily stool softener (Colace) while taking narcotic pain medication to prevent constipation or straining. Drink plenty of water daily. FOLLOW UP VISIT: - If not already scheduled, please call the office to schedule a two week follow-up appointment. Office number Pending Studies at Discharge: Yes (gallbladder pathology, will be reviewed at postop visit) Stand-Alone Forms: My [facility] VIS Research, Work/School Release, Smoking Cessation Medications and DC Order Prescriptions: New oxycodone-acetaminophen 5-325 mg tablet 1 tab PO Q6H PRN (Reason: pain) Qty: 5 0RF Discharge Orders: Discharge Order (Routine); Ordered 07/31/23 Ordered By: Luda Gleason Admission Data Admit Date/Time: 07/29/23 20:16 Attending Provider: Porsha Lee Admit Provider: Porsha Lee Primary Care Provider: PCP,NO Other Providers: Porsha Lee Other Interventions: Discharge Summary Assessment (RN) Last Done: 07/31/23 11:29
== END 2023-07-31 12:29 | disposition home or self-care (01) ==
LOC: EDINP 13:21 → ED 13:21 → 3N 21:33